=== PATIENT | male | born 1960 | race Caucasian/White ===

== ENCOUNTER 2018-01-29 10:04 | Emergency (ER) | payer OTHER ==
[~2018-01-29] VITALS: Ht 185.4 cm; Wt 115.7 kg
[2018-01-29] MEDS ORDERED: HYDROCODONE-AP1 EAC6 PO (10:54)
[2018-01-29] MEDS ORDERED: IBUPROFEN 800800 M1 PO (11:00)
[2018-01-29 11:50] VITALS: BP 153/88
== END 2018-01-29 11:52 | disposition home or self-care (01) ==
LOC: M.ERS 10:04
DX: S22.32XA Fracture of one rib, left side, initial encounter for closed fracture (principal); W10.8XXA Fall (on) (from) other stairs and steps, initial encounter; Y93.89 Activity, other specified; Y92.89 Other specified places as the place of occurrence of the external cause; Y99.8 Other external cause status